=== PATIENT | female | born 1995 | race African-American/Black ===

== ENCOUNTER 2017-04-14 21:10 | Emergency (ER) | payer MEDICAID, OTHER ==
[~2017-04-14] VITALS: Ht 177.8 cm; Wt 100.3 kg
[2017-04-15] MEDS ORDERED: DIPHENHYDRAMINE 50MG CAPSULE PO ONE (03:30)
[2017-04-15 03:36] LABS: HCG SCREEN NEGATIVE
[2017-04-15 04:50] LABS: CLARITY URINE TURBID (CLEAR); COLOR URINE DARK YELLOW (YELLOW); GLUCOSE URINE NEGATIVE (NEGATIVE); KETONES URINE NEGATIVE (NEGATIVE); LEUKOCYTE ESTERASE URINE 2+ (NEGATIVE); NITRITE URINE NEGATIVE (NEGATIVE); OCCULT BLOOD URINE TRACE (NEGATIVE); PROTEIN URINE TRACE (NEGATIVE); SPECIFIC GRAVITY URINE 1.033 (1.005-1.030)
[2017-04-15 05:51] VITALS: BP 113/61
== END 2017-04-15 05:54 | disposition home or self-care (01) ==
LOC: ER 21:10
DX: N39.0 Urinary tract infection, site not specified (principal); B37.3 Candidiasis of vulva and vagina; F17.210 Nicotine dependence, cigarettes, uncomplicated
CPT/HCPCS: 81001; 84703; 99284; Z7610

== ENCOUNTER 2018-02-22 18:58 | Emergency (ER) | payer SELFPAY ==
[~2018-02-22] VITALS: Ht 175.3 cm; Wt 104.0 kg
[2018-02-22] MEDS ORDERED: IBUPROFEN 600MG TABLET PO ONE (23:15)
[2018-02-22 23:39] VITALS: BP 129/73
== END 2018-02-22 23:45 | disposition home or self-care (01) ==
LOC: ER 19:18
DX: S20.01XA Contusion of right breast, initial encounter (principal); R10.32 Left lower quadrant pain; V89.2XXA Person injured in unspecified motor-vehicle accident, traffic, initial encounter; Y93.89 Activity, other specified; Y92.89 Other specified places as the place of occurrence of the external cause; Y99.8 Other external cause status
CPT/HCPCS: 99282

== ENCOUNTER 2018-02-27 15:49 | Emergency (ER) | payer SELFPAY ==
[~2018-02-27] VITALS: Ht 175.3 cm; Wt 105.0 kg
[2018-02-27 20:01] LABS: COLOR URINE YELLOW (YELLOW)
[2018-02-27 20:02] LABS: CLARITY URINE HAZY (CLEAR); KETONES URINE NEGATIVE (NEGATIVE); LEUKOCYTE ESTERASE URINE 1+ (NEGATIVE); NITRITE URINE NEGATIVE (NEGATIVE); OCCULT BLOOD URINE 2+ (NEGATIVE); PH URINE 6.5 (4.5-8.0); PROTEIN URINE TRACE (NEGATIVE); SPECIFIC GRAVITY URINE 1.019 (1.005-1.030)
[2018-02-27 21:36] VITALS: BP 127/67
== END 2018-02-27 21:37 | disposition home or self-care (01) ==
LOC: ER 17:15
DX: S30.1XXA Contusion of abdominal wall, initial encounter (principal); N30.01 Acute cystitis with hematuria; R39.15 Urgency of urination; F12.10 Cannabis abuse, uncomplicated; V89.2XXA Person injured in unspecified motor-vehicle accident, traffic, initial encounter; Y93.89 Activity, other specified; Y92.89 Other specified places as the place of occurrence of the external cause; Y99.8 Other external cause status
CPT/HCPCS: 81003; 81025; 87077; 87086; 87186; 99284; Z7610

== ENCOUNTER 2021-01-29 11:53 | Emergency (ER) | payer MEDICAID ==
[~2021-01-29] VITALS: Ht 177.8 cm; Wt 116.0 kg
[2021-01-29] MEDS ORDERED: AMOX-494 MT (12:42)
[2021-01-29] MEDS ORDERED: IBUP-2029 MT (12:42)
[2021-01-29] MEDS ORDERED: AMOXICILLIN 500 MG CAPSULE PO ONE (12:45)
[2021-01-29] MEDS ORDERED: IBUPROFEN 600MG TABLET PO ONE (12:45)
[2021-01-29 13:11] VITALS: BP 133/88
== END 2021-01-29 13:11 | disposition home or self-care (01) ==
LOC: ER 11:53
DX: J02.9 Acute pharyngitis, unspecified (principal); F12.10 Cannabis abuse, uncomplicated
CPT/HCPCS: 81025; 99283

== ENCOUNTER 2022-10-23 13:50 | Emergency (ER) | payer MEDICAID, MEDICARE ==
[~2022-10-23] VITALS: Ht 177.8 cm; Wt 114.0 kg
[~2022-10-23 13:50] MED LIST: AMOX-494 MT; IBUP-2029 MT
[2022-10-23 14:58] VITALS: BP 144/72
[2022-10-23] MEDS ORDERED: AMOX-494 MT (18:13)
[2022-10-23] MEDS ORDERED: AMOXICILLIN 500 MG CAPSULE PO ONE (18:15)
[2022-10-24] MEDS ORDERED: AMOX-494 MT (10:29)
== END 2022-10-23 19:00 | disposition home or self-care (01) ==
LOC: ER 13:50
DX: J03.90 Acute tonsillitis, unspecified (principal); F12.10 Cannabis abuse, uncomplicated
CPT/HCPCS: 99283